=== PATIENT | female | born 2000 | race Caucasian/White ===

== ENCOUNTER → 2020-01-31 | Outpatient (REF) | payer OTHER ==
[2020-01-31 12:56] LABS: FREE T4 1.15 NG/DL (0.76-1.46); THYROID STIMULATING HORMONE 5.45 uIU/ML (0.358-3.740)
== END ==
LOC: M PLALAB 08:12
PROVIDERS: ATTEND Advanced Practice Midwife
DX: E03.9 Hypothyroidism, unspecified (principal)

== ENCOUNTER → 2020-03-13 | Outpatient (REF) | payer OTHER ==
[2020-04-27 16:13] LABS: FREE T4 1.11 NG/DL (0.76-1.46); THYROID STIMULATING HORMONE 2.05 uIU/ML (0.358-3.740)
== END ==
LOC: M SFHCWAGY 12:17
PROVIDERS: ATTEND Advanced Practice Midwife
DX: E03.9 Hypothyroidism, unspecified (principal)
CPT/HCPCS: 36415; 84439; 84443; G0463

== ENCOUNTER → 2022-09-02 | Outpatient (CLI) | payer OTHER ==
[2022-09-02 17:21] LABS: HEMATOCRIT 33.1 % (36.0-47.0); MEAN CORPUSCULAR HGB CONC 33.2 g/dl (32.0-36.5); MEAN CORPUSCULAR VOLUME 93.2 fl (80.0-96.0); PLATELET COUNT, AUTOMATED 238 10^3/uL (150-450); RED BLOOD COUNT 3.55 10^6/uL (4.00-5.40)
[2022-09-02 17:47] LABS: TOTAL PROTEIN,RANDOM URINE 10.7 MG/DL (0.0-14.0)
[2022-09-02 17:52] LABS: URIC ACID 4.3 MG/DL (3.1-7.8)
[2022-09-02 17:52] LABS: CREATININE,RANDOM URINE 83.6 MG/DL
[2022-09-02 17:54] LABS: LDH LACTATE DEHYDROGENASE 142 U/L (120-246); THYROID STIMULATING HORMONE 9.304 uIU/ML (0.55-4.78)
[2022-09-02 17:55] LABS: ALT/SGPT 11 U/L (7.0-40); AST/SGOT 13 U/L (<34); BILIRUBIN,TOTAL 0.3 MG/DL (0.3-1.2); GLOMERULAR FILTRATION RATE > 60.0 (>60); GLUCOSE CHALLENGE TEST 1 HOUR 85 MG/DL (LESS THAN 140)
[2022-09-02 17:58] LABS: FREE T4 0.93 NG/DL (0.89-1.76)
[2022-09-02 19:17] LABS: GC DNA AMPLIFICATION NEGATIVE (NEGATIVE)
== END ==
LOC: M PLALAB 14:34
PROVIDERS: ATTEND Advanced Practice Midwife
DX: Z36.9 Encounter for antenatal screening, unspecified (principal)
CPT/HCPCS: 36415; 82247; 82565; 82570; 82950; 83615; 84156; 84439; 84443; 84450; 84460; 84550; 85027; 86850; 86900; 86901; 87810; 87850; J2790

== ENCOUNTER → 2022-09-17 | Outpatient (CLI) | payer OTHER | LOC: M WHC 12:20 | PROVIDERS: ATTEND Advanced Practice Midwife | DX: Z34.82 Encounter for supervision of other normal pregnancy, second trimester (principal); Z3A.29 29 weeks gestation of pregnancy ==

== ENCOUNTER → 2022-09-19 | Outpatient (CLI) | payer OTHER | LOC: M WHC 15:22 | PROVIDERS: ATTEND Obstetrics & Gynecology | DX: Z36.2 Encounter for other antenatal screening follow-up (principal); Z53.9 Procedure and treatment not carried out, unspecified reason ==

== ENCOUNTER → 2022-10-10 | Outpatient (CLI) | payer OTHER | LOC: M WHC 08:06 | PROVIDERS: ATTEND Obstetrics & Gynecology | DX: O32.1XX0 Maternal care for breech presentation, not applicable or unspecified (principal); Z3A.32 32 weeks gestation of pregnancy ==

== ENCOUNTER → 2022-10-16 | Outpatient (CLI) | payer OTHER ==
[2022-10-16 12:00] LABS: THYROID STIMULATING HORMONE 2.816 uIU/ML (0.55-4.78)
[2022-10-16 12:01] LABS: FREE T4 1.06 NG/DL (0.89-1.76)
== END ==
LOC: M PLALAB 09:20
PROVIDERS: ATTEND Advanced Practice Midwife
DX: O99.283 Endocrine, nutritional and metabolic diseases complicating pregnancy, third trimester (principal)

== ENCOUNTER → 2022-11-05 | Outpatient (CLI) | payer OTHER ==
[~2022-11-05] MED LIST: ASPI81CH33 PO; MULTTAB20 PO; SYNT125T PO
[2022-11-05 15:58] LABS: HEMATOCRIT 32.4 % (36.0-47.0); HEMOGLOBIN 10.5 g/dl (12.0-15.5); MEAN CORPUSCULAR HEMOGLOBIN 29.1 pg (27.0-33.0); MEAN CORPUSCULAR HGB CONC 32.4 g/dl (32.0-36.5); MEAN CORPUSCULAR VOLUME 89.8 fl (80.0-96.0); PLATELET COUNT, AUTOMATED 231 10^3/uL (150-450); RED BLOOD COUNT 3.61 10^6/uL (4.00-5.40)
[2022-11-05 15:59] LABS: URIC ACID 4.3 MG/DL (3.1-7.8)
[2022-11-05 16:01] LABS: LDH LACTATE DEHYDROGENASE 166 U/L (120-246)
[2022-11-05 16:02] LABS: ALT/SGPT 10 U/L (7.0-40); AST/SGOT 11 U/L (<34); BILIRUBIN,TOTAL 0.4 MG/DL (0.3-1.2); CREATININE FOR GFR 0.47 MG/DL (0.55-1.30); GLOMERULAR FILTRATION RATE > 60.0 (>60)
[2022-11-05 16:18] LABS: CREATININE,RANDOM URINE 46.8 MG/DL
[2022-11-05 16:27] LABS: TOTAL PROTEIN,RANDOM URINE < 6.0 MG/DL (0.0-14.0)
== END ==
LOC: M PLALAB 13:30
PROVIDERS: ATTEND Obstetrics & Gynecology
DX: O13.3 Gestational [pregnancy-induced] hypertension without significant proteinuria, third trimester (principal)
CPT/HCPCS: 36415; 59025; 82247; 82565; 82570; 83615; 84156; 84450; 84460; 84550; 85027; 87081; G0463

== ENCOUNTER → 2022-11-06 | Outpatient (CLI) | payer OTHER | LOC: M WHC 12:49 | PROVIDERS: ATTEND Advanced Practice Midwife | DX: O13.3 Gestational [pregnancy-induced] hypertension without significant proteinuria, third trimester (principal); Z3A.36 36 weeks gestation of pregnancy ==

== ENCOUNTER → 2023-04-08 | Outpatient (CLI) | payer OTHER ==
[2023-04-08 18:18] LABS: FREE T4 0.92 NG/DL (0.89-1.76)
[2023-04-08 18:48] LABS: HIV 1&2 SCREEN NEGATIVE (NEGATIVE)
[2023-04-08 18:57] LABS: HEPATITIS B CORE ANTIBODY IGM NEGATIVE (NEGATIVE); HEPATITIS C VIRUS ABY INDEX 0.13 INDEX (<0.8)
[2023-04-08 19:06] LABS: HCG, SERUM QUALITATIVE NEGATIVE (NEGATIVE)
[2023-04-08 20:01] LABS: GC DNA AMPLIFICATION NEGATIVE (NEGATIVE)
== END ==
LOC: M PLALAB 15:41
PROVIDERS: ATTEND Nurse Practitioner Family
DX: E03.9 Hypothyroidism, unspecified (principal); R11.0 Nausea; Z12.4 Encounter for screening for malignant neoplasm of cervix; Z11.3 Encounter for screening for infections with a predominantly sexual mode of transmission
CPT/HCPCS: 36415; 84439; 84443; 84703; 86705; 86780; 86803; 87340; 87389; 87661; 87810; 87850; G0123; G0463

== ENCOUNTER → 2024-03-16 | Outpatient (REF) | payer OTHER ==
[2024-03-16 14:02] LABS: CREATININE,RANDOM URINE 15.4 MG/DL
[2024-03-16 14:04] LABS: TOTAL PROTEIN,RANDOM URINE < 6.0 MG/DL (0.0-14.0)
[2024-03-16 15:13] LABS: GC DNA AMPLIFICATION NEGATIVE (NEGATIVE)
== END ==
LOC: M PLALAB 10:28
PROVIDERS: ATTEND Advanced Practice Midwife
DX: O09.291 Supervision of pregnancy with other poor reproductive or obstetric history, first trimester (principal); Z3A.00 Weeks of gestation of pregnancy not specified

== ENCOUNTER → 2024-03-16 | Outpatient (CLI) | payer OTHER ==
[2024-03-16 13:24] LABS: HEMATOCRIT 38.1 % (36.0-47.0); HEMOGLOBIN 12.5 g/dl (12.0-15.5); MEAN CORPUSCULAR HEMOGLOBIN 29.6 pg (27.0-33.0); MEAN CORPUSCULAR HGB CONC 32.8 g/dl (32.0-36.5); MEAN CORPUSCULAR VOLUME 90.3 fl (80.0-96.0); PLATELET COUNT, AUTOMATED 261 10^3/uL (150-450); RED BLOOD COUNT 4.22 10^6/uL (4.00-5.40); WHITE BLOOD COUNT 10.1 10^3/uL (4.0-10.0)
[2024-03-16 13:29] LABS: LDH LACTATE DEHYDROGENASE 159 U/L (120-246)
[2024-03-16 13:30] LABS: FREE T4 1.13 NG/DL (0.89-1.76); URIC ACID 3.9 MG/DL (3.1-7.8)
[2024-03-16 13:31] LABS: ALT/SGPT 13 U/L (7.0-40); AST/SGOT 9 U/L (<34); BILIRUBIN,TOTAL 0.3 MG/DL (0.3-1.2); CREATININE FOR GFR 0.52 MG/DL (0.55-1.30); GLOMERULAR FILTRATION RATE > 60.0 (>60)
[2024-03-16 13:33] LABS: THYROID STIMULATING HORMONE 6.595 uIU/ML (0.55-4.78)
[2024-03-16 13:57] LABS: HIV 1&2 SCREEN NEGATIVE (NEGATIVE)
[2024-03-16 14:04] LABS: HEPATITIS C VIRUS ABY INDEX 0.04 INDEX (<0.8)
== END ==
LOC: M PLALAB 10:35
PROVIDERS: ATTEND Advanced Practice Midwife
DX: O09.291 Supervision of pregnancy with other poor reproductive or obstetric history, first trimester (principal); Z3A.00 Weeks of gestation of pregnancy not specified

== ENCOUNTER → 2024-06-14 | Outpatient (CLI) | payer OTHER | LOC: M WHC 06:38 | PROVIDERS: ATTEND Specialist | DX: Z34.82 Encounter for supervision of other normal pregnancy, second trimester (principal); Z3A.20 20 weeks gestation of pregnancy ==

== ENCOUNTER → 2024-07-20 | Outpatient (CLI) | payer OTHER ==
[2024-07-20 12:57] LABS: GLUCOSE CHALLENGE TEST 1 HOUR 83 MG/DL (LESS THAN 140)
[2024-07-20 13:00] LABS: HEMATOCRIT 32.6 % (36.0-47.0); HEMOGLOBIN 10.8 g/dl (12.0-15.5); MEAN CORPUSCULAR HEMOGLOBIN 29.8 pg (27.0-33.0); MEAN CORPUSCULAR HGB CONC 33.1 g/dl (32.0-36.5); MEAN CORPUSCULAR VOLUME 89.8 fl (80.0-96.0); PLATELET COUNT, AUTOMATED 302 10^3/uL (150-450); RED BLOOD COUNT 3.63 10^6/uL (4.00-5.40); WHITE BLOOD COUNT 9.8 10^3/uL (4.0-10.0)
[2024-07-20 13:32] LABS: HIV 1&2 SCREEN NEGATIVE (NEGATIVE)
[2024-07-20 13:39] LABS: HEPATITIS C VIRUS ABY INDEX 0.02 INDEX (<0.8)
[2024-07-20 15:09] LABS: GC DNA AMPLIFICATION NEGATIVE (NEGATIVE)
== END ==
LOC: M PLALAB 09:05
PROVIDERS: ATTEND Obstetrics & Gynecology
DX: Z34.82 Encounter for supervision of other normal pregnancy, second trimester (principal); Z3A.00 Weeks of gestation of pregnancy not specified

== ENCOUNTER → 2024-08-17 | Outpatient (CLI) | payer OTHER ==
[2024-08-17 15:45] LABS: THYROID STIMULATING HORMONE 2.349 uIU/ML (0.55-4.78)
[2024-08-17 15:46] LABS: FREE T4 1.07 NG/DL (0.89-1.76)
== END ==
LOC: M PLALAB 14:15
PROVIDERS: ATTEND Nurse Practitioner Family
DX: E03.9 Hypothyroidism, unspecified (principal)

== ENCOUNTER → 2024-08-30 | Outpatient (CLI) | payer OTHER | LOC: M RAD 11:58 | PROVIDERS: ATTEND Obstetrics & Gynecology | DX: Z34.83 Encounter for supervision of other normal pregnancy, third trimester (principal); Z3A.31 31 weeks gestation of pregnancy ==

== ENCOUNTER → 2024-10-06 | Outpatient (REF) | payer OTHER | LOC: M SFHCWAGY 14:51 | PROVIDERS: ATTEND Obstetrics & Gynecology | DX: Z36.85 Encounter for antenatal screening for Streptococcus B (principal); Z3A.36 36 weeks gestation of pregnancy ==

== ENCOUNTER 2024-10-25 10:15 | Inpatient (IN) | payer OTHER ==
[~2024-10-25] VITALS: Ht 167.6 cm; Wt 91.7 kg
[2024-10-25] VITALS (8 sets, daily range): BP systolic 117–139; BP diastolic 73–81; O2SAT 98
[2024-10-25] MEDS ORDERED: HOME MED LIST COMPLETE! XX SCH (10:35)
[2024-10-25 11:40] LABS: HEMATOCRIT 32.3 % (36.0-47.0); HEMOGLOBIN 10.5 g/dl (12.0-15.5); MEAN CORPUSCULAR HEMOGLOBIN 27.3 pg (27.0-33.0); MEAN CORPUSCULAR HGB CONC 32.5 g/dl (32.0-36.5); MEAN CORPUSCULAR VOLUME 84.1 fl (80.0-96.0); PLATELET COUNT, AUTOMATED 238 10^3/uL (150-450); RED BLOOD COUNT 3.84 10^6/uL (4.00-5.40); WHITE BLOOD COUNT 8.4 10^3/uL (4.0-10.0)
[2024-10-25] MEDS ORDERED: OXYTOCIN INJ 10UNITS/ML 1ML VIAL IV PRN (12:25)
[2024-10-25 12:43] LABS: HIV 1&2 SCREEN NEGATIVE (NEGATIVE)
[2024-10-25 12:50] LABS: HEPATITIS C VIRUS ABY INDEX 0.04 INDEX (<0.8)
[2024-10-25] MEDS: miSOPROStol 50MCG 1/2 TABLET PO ONE (13:02)
[2024-10-25 13:06] LABS: URIC ACID 4.9 MG/DL (3.1-7.8)
[2024-10-25 13:08] LABS: LDH LACTATE DEHYDROGENASE 220 U/L (120-246)
[2024-10-25 13:09] LABS: ALT/SGPT 18 U/L (7.0-40); AST/SGOT 23 U/L (<34); BILIRUBIN,TOTAL 0.8 MG/DL (0.3-1.2); CREATININE FOR GFR 0.53 MG/DL (0.55-1.30); GLOMERULAR FILTRATION RATE > 60.0 (>60)
[2024-10-25 13:24] LABS: TOTAL PROTEIN,RANDOM URINE 14.3 MG/DL (0.0-14.0)
[2024-10-25 13:29] LABS: CREATININE,RANDOM URINE 150.9 MG/DL
[2024-10-25] MEDS: LR 1,000 ML IV SCH (17:52)
[2024-10-25] MEDS: OXYTOCIN DRIP 30 UNITS in IV 1 EA IV SCH (17:52)
[2024-10-25] MEDS: ACETAMINOPHEN 500 MG TAB PO PRN (17:54)
[2024-10-25] MEDS ORDERED: ePHEDrine SULFATE 25 MG/5 ML(5MG/ML) SYRINGE IVP PRN (21:20)
[2024-10-25] MEDS ORDERED: NALOXONE INJ 0.4MG/1ML VIAL IV PRN (21:20)
[2024-10-25] MEDS ORDERED: LR 500 ML IV PRN (21:20)
[2024-10-25] MEDS ORDERED: EPIDURAL/PCA KEYS XX PRN (21:20)
[2024-10-25] MEDS ORDERED: diphenhydrAMINE 50MG/ML VIAL IV PRN (21:20)
[2024-10-25] MEDS: FENTANYL/ROPIVACAINE/NACL BAG 100 ML EPIDURAL SCH (21:29)
[2024-10-25] MEDS: ONDANSETRON 4MG 2ML VIAL IV PRN (22:11)
[2024-10-26] MEDS: OXYTOCIN DRIP 30 UNITS in IV 1 EA IV SCH (00:30)
[2024-10-26] MEDS ORDERED: METHYLERGONOVINE MALEATE 0.2 MG TAB PO PRN (00:30)
[2024-10-26] MEDS ORDERED: ACETAMINOPHEN 500 MG TAB PO PRN (00:30)
[2024-10-26 00:44] LABS: CORD GAS ABE A -6.5; CORD GAS ABE V -4.9; CORD GAS HCO3 A 21.8 MMOL/L; CORD GAS HCO3 V 20.4 MMOL/L; CORD GAS O2 SAT V 65.2 %; CORD GAS PCO2 V 38.7 mmHg; CORD GAS PH A 7.215 UNITS; CORD GAS PH V 7.34 UNITS; CORD GAS PO2 A 24.9 mmHg; CORD GAS PO2 V 27.7 mmHg; CORD GAS SBC A 18.2 MMOL/L; CORD GAS SBC V 19.8 MMOL/L; CORD GAS TCO2 A 23.4 MMOL/L; CORD GAS TCO2 V 21.6 MMOL/L
[2024-10-26 03:00] VITALS: BP 120/57; O2SAT 99
[2024-10-26] MEDS: DIBUCAINE 1% OINTMENT 30GM TOP PRN (03:00)
[2024-10-26 06:00] VITALS: BP 109/55; O2SAT 98
[2024-10-26] MEDS: LEVOTHYROXINE 125MCG TABLET (0.125MG) PO SCH (06:49)
[2024-10-26] MEDS: PRENATAL VITAMINS CHEWABLE TABLET PO SCH (08:43)
[2024-10-26] MEDS: IBUPROFEN 600MG TAB PO PRN (08:44)
[2024-10-26] MEDS: RHOGAM 300MCG (1500IU) INJ IM SCH (10:40)
[2024-10-26 18:00] VITALS: BP 136/81; O2SAT 98
[2024-10-27] MEDS: DOCUSATE SODIUM 100MG CAPSULE PO PRN (05:37)
[2024-10-27 05:59] VITALS: BP 129/60; O2SAT 99
[2024-10-27 06:15] LABS: HEMATOCRIT 31.5 % (36.0-47.0); HEMOGLOBIN 9.7 g/dl (12.0-15.5); MEAN CORPUSCULAR HEMOGLOBIN 26.9 pg (27.0-33.0); MEAN CORPUSCULAR HGB CONC 30.8 g/dl (32.0-36.5); MEAN CORPUSCULAR VOLUME 87.3 fl (80.0-96.0); PLATELET COUNT, AUTOMATED 190 10^3/uL (150-450); RED BLOOD COUNT 3.61 10^6/uL (4.00-5.40); WHITE BLOOD COUNT 7.8 10^3/uL (4.0-10.0)
[2024-10-28] MEDS ORDERED: MEASLES,MUMPS,RUBELLA VACCINE INJ (MMR-II) SC.IMMUN ONE (09:00)
== END 2024-10-27 18:44 | disposition home or self-care (01) | DRG 773 ==
LOC: M LDI 10:15 → M OBS 10-26 02:54
PROVIDERS: ADMIT Obstetrics & Gynecology; ATTEND Obstetrics & Gynecology
PROC: 3E033VJ Introduction of Other Hormone into Peripheral Vein, Percutaneous Approach (ICD-10-PCS; 2024-10-25)
PROC: 10907ZC Drainage of Amniotic Fluid, Therapeutic from Products of Conception, Via Natural or Artificial Opening (ICD-10-PCS; 2024-10-25)
PROC: 3E0P7GC Introduction of Other Therapeutic Substance into Female Reproductive, Via Natural or Artificial Opening (ICD-10-PCS; 2024-10-25)
PROC: 10D00Z1 Extraction of Products of Conception, Low, Open Approach (ICD-10-PCS; principal; 2024-10-26)
DX: O13.4 Gestational [pregnancy-induced] hypertension without significant proteinuria, complicating childbirth (principal); E03.9 Hypothyroidism, unspecified; O99.284 Endocrine, nutritional and metabolic diseases complicating childbirth; Z3A.39 39 weeks gestation of pregnancy; Z37.0 Single live birth; Z79.890 Hormone replacement therapy